=== PATIENT | male | born 1955 | race Caucasian/White ===

== ENCOUNTER → 2017-08-16 | Outpatient (CLI) | payer BC ==
--- NOTE | 2017-08-16 17:00 | RADIOLOGY IMAGING REPORT ---
FACILITY: [facility] PATIENT NAME: Henrry Michael : 1955 MR: [id number] V: [id number] EXAM DATE: ORDERING PHYSICIAN: CARLOS FLAHERTY TECHNOLOGIST: Location: [facility] Patient: Henrry Michael : 1955 Visit/Account:[id number] Date of Sevice: 08/16/2017 Exam type: CHEST PA AND LAT History: Chronic cough since June 22 Comparison: October 04, 2015. Findings: Lungs are free of acute effusions, infiltrates or edema. There is no evidence of a pneumothorax or p neumomediastinum. Cardiac silhouette is normal in size. There are mild spondylotic changes of the t horacic spine. IMPRESSION: 1. No acute cardiac pulmonary process is seen Report Dictated By: Katie Taylor MD at 08/16/2017 4:53 PM Report E-Signed By: Katie Taylor MD at 08/16/2017 4:57 PM WSN:[email or web address]
== END ==
LOC: RAD 15:35
PROVIDERS: ATTEND Family Medicine
DX: M47.894 Other spondylosis, thoracic region (principal)
CPT/HCPCS: 71046

== ENCOUNTER 2018-07-28 07:53 | Emergency (ER) | payer BC ==
[2018-07-28] MEDS ORDERED: FLUT1AER INH (08:06)
[2018-07-28] MEDS ORDERED: RANI-886 PO (08:06)
--- NOTE | 2018-07-28 08:08 | ER Report ---
History and Physical Time Seen By MD: 08:06 Hx. of Stated Complaint: PT PRESENTS WITH SWOLLEN R KNEE. 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 KNEE DRAINED YESTERDAY AT URGENT CARE , FEELS IT IS MORE PAINFUL AND SWOLLEN, R FOOT NUMB. HPI/ROS CHIEF COMPLAINT: Right knee right leg swelling HISTORY OF PRESENT ILLNESS: 62-year-old male comes emergency Department today with a right knee swelling also describing peripheral edema of the entire lower extremity migrating up above proximal to the knee. 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 Patient denies any fever chills or sweats nausea vomiting diarrhea shortness of breath or additional complaints noted REVIEW OF SYSTEMS: Respiratory: No cough, no dyspnea. Cardiovascular: No chest pain, no palpitations. Gastrointestinal: No vomiting, no abdominal pain. Musculoskeletal: Right knee swelling Remainder of the 14 system rev: Yes Allergies: Coded Allergies: No Known Drug Allergies (Unverified , 07/28/18) Home Meds Reported Medications Ranitidine Hcl (ZANTAC 75) 75 Mg Tablet, 75 MG PO ONCE DAILY 07/28/18 Fluticasone/Vilanterol 100/25 Mcg/Inh (BREO ELLIPTA 100/25 MCG) 1 Each Aer.pow.b a, 1 INH INH QDAY, INH 07/28/18 Reviewed Nurses Notes: Yes Old Medical Records Reviewed: Yes Constitutional Vital Sign - Last 24 Hours 07/28/18 07:58 Temp 97.9 Pulse 82 Resp 20 B/P (MAP) 121/106 Pulse Ox 94 O2 Delivery Room Air Physical Exam General appearance: [Alert no distress.] Respiratory: Chest is non tender, lungs are clear to auscultation. Cardiac: Regular rate and rhythm [ ] Lower extremity right examination shows a neurovascular intact with +1 to +2 pitting edema distal to the ankle no edema noted [id number] deviling knee effusion noted infra and lateral to the patella neurovascular intact full range of motion without issue DIFFERENTIAL DIAGNOSIS: After history and physical exam differential diagnosis was considered for edema joint effusion DVT infection Medical Decision Making Data Points Result Diagram: 07/28/18 0814 Laboratory Hematology Test 07/28/18 08:14 Red Blood Count 5.38 M/uL (4.00-5.60) Mean Corpuscular Volume 93.2 fL (80.0-96.0) Mean Corpuscular Hemoglobin 31.4 pg (26.0-33.0) Mean Corpuscular Hemoglobin Concent 33.7 g/dL (32.0-36.0) Red Cell Distribution Width 13.5 % (11.5-14.5) Mean Platelet Volume 8.2 fL (7.2-11.1) Neutrophils (%) (Auto) 68.7 % (39.4-72.5) Lymphocytes (%) (Auto) 21.7 % (17.6-49.6) Monocytes (%) (Auto) 7.8 % (4.1-12.4) Eosinophils (%) (Auto) 0.8 % (0.4-6.7) Basophils (%) (Auto) 1.0 % (0.3-1.4) Nucleated RBC Relative Count (auto) 0.1 /100WBC Neutrophils # (Auto) 3.7 K/uL (2.0-7.4) Lymphocytes # (Auto) 1.2 K/uL (1.3-3.6) Monocytes # (Auto) 0.4 K/uL (0.3-1.0) Eosinophils # (Auto) 0.0 K/uL (0.0-0.5) Basophils # (Auto) 0.1 K/uL (0.0-0.1) Nucleated RBC Absolute Count (auto) 0.01 K/uL Erythrocyte Sedimentation Rate 17 mm/HOUR (0-20) C-Reactive Protein 1.3 mg/dl (<1.0) Chemistry Test 07/28/18 08:14 White Blood Count 5.4 k/uL (4.5-11.0) Red Blood Count 5.38 M/uL (4.00-5.60) Hemoglobin 16.9 g/dL (14.0-18.0) Hematocrit 50.1 % (42.0-52.0) Mean Corpuscular Volume 93.2 fL (80.0-96.0) Mean Corpuscular Hemoglobin 31.4 pg (26.0-33.0) Mean Corpuscular Hemoglobin Concent 33.7 g/dL (32.0-36.0) Red Cell Distribution Width 13.5 % (11.5-14.5) Platelet Count 208 K/uL (150-450) Mean Platelet Volume 8.2 fL (7.2-11.1) Neutrophils (%) (Auto) 68.7 % (39.4-72.5) Lymphocytes (%) (Auto) 21.7 % (17.6-49.6) Monocytes (%) (Auto) 7.8 % (4.1-12.4) Eosinophils (%) (Auto) 0.8 % (0.4-6.7) Basophils (%) (Auto) 1.0 % (0.3-1.4) Nucleated RBC Relative Count (auto) 0.1 /100WBC Neutrophils # (Auto) 3.7 K/uL (2.0-7.4) Lymphocytes # (Auto) 1.2 K/uL (1.3-3.6) Monocytes # (Auto) 0.4 K/uL (0.3-1.0) Eosinophils # (Auto) 0.0 K/uL (0.0-0.5) Basophils # (Auto) 0.1 K/uL (0.0-0.1) Nucleated RBC Absolute Count (auto) 0.01 K/uL Erythrocyte Sedimentation Rate 17 mm/HOUR (0-20) C-Reactive Protein 1.3 mg/dl (<1.0) ED Course/Re-evaluation ED Course ED course 59-year-old male comes in with a unilateral right-sided pleural effusion a bump in his sedimentation rate normal white count x-ray shows some fluid effusions and around the knee ultrasound showed no DVT I will be referring him to orthopedics. Head is need Yesterday am not couple tapping it again today will not start her on antibiotics as I don't think he has an obvious infection at this time but on follow up next couple days with orthopedics Decision to Disposition Date: Jul 28, 2018 Decision to Disposition Time: 09:38 Depart Departure Latest Vital Signs Vital Signs Date Time Temp Pulse Resp B/P (MAP) Pulse Ox O2 Delivery O2 Flow Rate FiO2 07/28/18 07:58 97.9 82 20 121/106 94 Room Air Impression: Primary Impression: Knee effusion, right Condition: Condition Unchanged Disposition: HOME OR SELF-CARE Referrals: CARLOS FLAHERTY MD (PCP) RAMIREZ RUBALCAVA MD 5 Days Patient Instructions: Leg Edema (ED) DAWN HANSON MD Jul 28, 2018 08:08
[2018-07-28 08:31] LABS: PLATELET COUNT, AUTOMATED 208 K/uL (150-450)
--- NOTE | 2018-07-28 08:53 | RADIOLOGY IMAGING REPORT ---
[place] [facility] [place] NAME: Henrry Michael : 1955 MR: [id number] V: [id number] EXAM DATE: ORDERING PHYSICIAN: DAWN HANSON TECHNOLOGIST: Location: [facility] Patient: Henrry Michael : 1955 Visit/Account:[id number] Date of Sevice: 07/28/2018 Exam type: KNEE 3 VIEW RIGHT History: Right knee pain and swelling, patient denies trauma Comparison: None. Findings: Three views of the right knee were submitted. There is a large amount of soft tissue swelling and price spected joint effusion along the anterior inferior aspect of the right knee. There are moderate dege nerative changes of the right patellofemoral joint and mild degenerative changes of the medial compar tment. Chondrocalcinosis is noted in the lateral compartment. There is no evidence of acute fractur e or dislocation IMPRESSION: 1. Large amount soft tissue swelling over the anterior inferior aspect of the right knee with [place] joint effusion No evidence of acute fracture or dislocation Moderate degenerative changes of the right patellofemoral joint and mild degenerative changes of the medial compartment. Chondrocalcinosis in the lateral compartment Report Dictated By: Katie Taylor MD at 07/28/2018 8:46 AM Report E-Signed By: Katie Taylor MD at 07/28/2018 8:48 AM WSN:[email or web address]
--- NOTE | 2018-07-28 09:26 | RADIOLOGY IMAGING REPORT ---
FACILITY: [facility] PATIENT NAME: Henrry Michael : 1955 MR: [id number] V: [id number] EXAM DATE: ORDERING PHYSICIAN: DAWN HANSON TECHNOLOGIST: Location: [facility] [place] Patient: Henrry Michael : 1955 Visit/Account:[id number] Date of Sevice: 07/28/2018 Exam type: US VENOUS LOWER EXT RT History: swelling Comparison: Knee series performed earlier today. Findings: The right lower extremity veins were imaged including the right common femoral vein greater saphenous vein superficial femoral vein popliteal vein posterior tibial vein peroneal vein and anterior tibial vein revealing no evidence of intraluminal thrombi. The veins were compressible and demonstrated au gmentation. There is a large amount soft tissue spine over the anterior aspect of the right knee. There are also two connecting fluid pockets anteriorly the medial pocket measures 2.6 x 0.6 x 1.2 cm the lateral po cket measures 3.3 x 0.5 x 1.4 cm IMPRESSION: 1. No sonographic evidence DVT involving the right lower extremity veins Is a large amount soft tissue spine over the anterior aspect of the right knee and two connecting poc kets of fluid anteriorly along both the medial and lateral aspects Report Dictated By: Katie Taylor MD at 07/28/2018 9:21 AM Report E-Signed By: Katie Taylor MD at 07/28/2018 9:22 AM WSN:[email or web address]
[2018-07-28 09:50] VITALS: BP 137/89
== END 2018-07-28 09:55 | disposition home or self-care (01) ==
LOC: ER 08:30
DX: M25.461 Effusion, right knee (principal)
CPT/HCPCS: 85025; 85651; 86140; 99284